=== PATIENT | female | born 1935 | race Caucasian/White ===

== ENCOUNTER 2016-07-11 04:02 | Emergency (ER) | payer OTHER ==
[~2016-07-11] VITALS: Ht 172.7 cm; Wt 90.9 kg
[~2016-07-11 04:02] MED LIST: AMLO2.5T PO; ASPI-556 PO; ATOR40TA71 PO; ERGO500013 PO; FENO135C PO; FLUT1DIS BU; INSULIN LANTUS SQ; LORA1TAB3 PO; LOSA100T8 PO; LOTE55OS OU; NEBI5 PO; PANT40TA25 PO; SERT100T12 PO; [UNRECOGNIZED DRUG - CODE] PO
[2016-07-11 04:17] LABS: GLUCOSE,POINT OF CARE 119 MG/DL (70-110)
[2016-07-11] MEDS ORDERED: ACETAMINOPHEN 325 MG TABLET PO ONE (06:15)
[2016-07-11] MEDS ORDERED: PERTUSS(ACELL),DIPH,TET VAC/PF 0.5 ML VIAL IM ONE (06:15)
[2016-07-11 06:42] VITALS: BP 137/97
== END 2016-07-11 07:12 | disposition home or self-care (01) ==
LOC: EMS 04:03
DX: S01.01XA Laceration without foreign body of scalp, initial encounter (principal); S40.022A Contusion of left upper arm, initial encounter; J45.909 Unspecified asthma, uncomplicated; E11.9 Type 2 diabetes mellitus without complications; E78.00 Pure hypercholesterolemia, unspecified; I10 Essential (primary) hypertension; Z79.82 Long term (current) use of aspirin; Z79.4 Long term (current) use of insulin; W19.XXXA Unspecified fall, initial encounter; Y93.9 Activity, unspecified; Y92.89 Other specified places as the place of occurrence of the external cause; Y99.8 Other external cause status
CPT/HCPCS: 12001; 70450; 82962; 90471; 90715; 99284

== ENCOUNTER 2017-07-10 23:29 | Emergency (ER) | payer OTHER ==
[~2017-07-10] VITALS: Ht 167.6 cm; Wt 68.2 kg
[~2017-07-10 23:29] MED LIST changes: +ATOR40TA28 PO; -ATOR40TA71 PO; -FENO135C PO; +HYDR25TA84 PO; +LORA10TA7 PO; -LOSA100T8 PO; -NEBI5 PO
[2017-07-10 23:43] LABS: GLUCOSE,POINT OF CARE 135 MG/DL (70-110)
[2017-07-10] MEDS ORDERED: FLUT16H NASAL (23:47)
[2017-07-10] MEDS ORDERED: FERR-89 PO (23:47)
[2017-07-10] MEDS ORDERED: ASPI-989 PO (23:47)
[2017-07-10] MEDS ORDERED: MEMA21CA PO (23:47)
[2017-07-10] MEDS ORDERED: ATOR40TA28 PO (23:47)
[2017-07-10] MEDS ORDERED: DOCU250C91 PO (23:47)
[2017-07-10] MEDS ORDERED: HYDR25TA84 PO (23:47)
[2017-07-10] MEDS ORDERED: INSU100C14 SQ (23:47)
[2017-07-10] MEDS ORDERED: INSLAN SQ (23:47)
[2017-07-11] MEDS ORDERED: HydrALAZINE HCL 20 MG/ML VIAL IVP ONE
[2017-07-11 00:32] LABS: BASOPHILS % (AUTO) 0.8 % (0.0-2.0); EOSINOPHILS % (AUTO) 4.1 % (1.0-6.0); HEMATOCRIT 29.7 % (36-46); HEMOGLOBIN 10.4 g/dL (12.0-16.0); LYMPHOCYTES # (AUTO) 1.2 K/uL (1.0-4.8); LYMPHOCYTES % (AUTO) 31.5 % (22.0-44.0); MEAN CORPUSCULAR HEMOGLOBIN 32.4 pg (26.0-34.0); MEAN CORPUSCULAR HGB CONC 35.2 G/dL (31.0-37.0); MEAN CORPUSCULAR VOLUME 92 fL (80-100); MONOCYTES # (AUTO) 0.4 K/uL (0.1-1.0); MONOCYTES % (AUTO) 9.9 % (2.0-9.0); NEUTROPHILS # (AUTO) 2.1 K/uL (1.8-7.7); NEUTROPHILS % (AUTO) 53.7 % (40.0-70.0); PLATELET COUNT (AUTO) 144 K/uL (150-450); RED BLOOD CELL COUNT(AUTO) 3.22 MIL/uL (4.00-5.20); RED CELL DISTRIBUTION WIDTH 13.1 % (11.5-14.5)
[2017-07-11 00:45] LABS: ANION GAP 8 mmol/L (8-16); CALCIUM, TOTAL 9.4 mg/dL (8.8-10.5); CARBON DIOXIDE 26 mmol/L (22-29); CHLORIDE 103 mmol/L (98-107); CREATININE 1.33 mg/dL (0.60-1.30); GLOMERULAR FILTR. RATE CALC 38 mL/min (>60); GLUCOSE,RANDOM 124 mg/dL (70-110); POTASSIUM 4.1 mmol/L (3.5-5.1); SODIUM SERUM 137 mmol/L (136-145); UREA NITROGEN, BLOOD 24 mg/dL (7-18)
[2017-07-11 00:48] LABS: PROTHROMBIN TIME 10.6 SEC (9.4-11.6)
[2017-07-11 01:08] LABS: ALANINE AMINOTRANSFERASE 26 U/L (12-78); ALBUMIN 3.7 g/dL (3.4-5.0); ALKALINE PHOSPHATASE 40 U/L (46-116); ASPARTATE AMINOTRANSFERASE 23 U/L (15-37); BILIRUBIN,TOTAL 0.5 mg/dL (0.1-1.0); CREATINE KINASE, TOTAL 83 U/L (26-192); TOTAL PROTEIN, SERUM 6.4 g/dL (6.4-8.2)
[2017-07-11] MEDS ORDERED: KETOROLAC TROMETHAMINE 30 MG/ML VIAL IVP ONE (02:45)
[2017-07-11 03:35] LABS: APPEARANCE,URINE CLEAR (CLEAR); BILIRUBIN,URINE NEGATIVE (NEGATIVE); GLUCOSE, URINE (UA) NEGATIVE (NEGATIVE); KETONES,URINE NEGATIVE (NEGATIVE); LEUKOCYTE ESTERASE ,URINE NEGATIVE (NEGATIVE); NITRATE,URINE NEGATIVE (NEGATIVE); OCCULT BLOOD,URINE NEGATIVE (NEGATIVE); PROTEIN,URINE NEGATIVE (NEGATIVE); UROBILINOGEN,URINE 0.2 mg/dL (<=1.0)
[2017-07-11 03:45] VITALS: BP 168/69
== END 2017-07-11 04:26 | disposition home or self-care (01) ==
LOC: EMS 23:30
DX: I10 Essential (primary) hypertension (principal); D64.9 Anemia, unspecified; J45.909 Unspecified asthma, uncomplicated; R51 Headache; E78.00 Pure hypercholesterolemia, unspecified; E11.9 Type 2 diabetes mellitus without complications; Z86.73 Personal history of transient ischemic attack (TIA), and cerebral infarction without residual deficits; Z79.82 Long term (current) use of aspirin; Z79.4 Long term (current) use of insulin; Z79.899 Other long term (current) drug therapy
CPT/HCPCS: 36415; 70450; 71045; 80053; 81003; 82550; 82553; 82962; 84484; 85025; 85610; 93005; 96374; 96375; 99285; J0360; J1885

== ENCOUNTER 2019-11-15 14:06 | Emergency (ER) | payer OTHER ==
[~2019-11-15] VITALS: Ht 165.1 cm; Wt 81.8 kg
[~2019-11-15 14:06] MED LIST changes: -AMLO2.5T PO; -ASPI-556 PO; +ASPI-989 PO; +DOCU-342 PO; +FERR-89 PO; +FLUT16H NASAL; -FLUT1DIS BU; +INSLAN SQ; +INSU100C14 SQ; -INSULIN LANTUS SQ; +LORA-1000 PO; -LORA1TAB3 PO; -LOTE55OS OU; +MEMA21CA PO; -[UNRECOGNIZED DRUG - CODE] PO
[2019-11-15 16:20] LABS: BASOPHILS % (AUTO) 0.3 % (0.0-2.0); EOSINOPHILS % (AUTO) 1.4 % (1.0-6.0); HEMATOCRIT 34.3 % (36-46); HEMOGLOBIN 11.5 g/dL (12.0-16.0); LYMPHOCYTES # (AUTO) 1.2 K/uL (1.0-4.8); LYMPHOCYTES % (AUTO) 15.9 % (22.0-44.0); MEAN CORPUSCULAR HEMOGLOBIN 30.9 pg (26.0-34.0); MEAN CORPUSCULAR HGB CONC 33.4 G/dL (31.0-37.0); MEAN CORPUSCULAR VOLUME 92 fL (80-100); MONOCYTES # (AUTO) 0.6 K/uL (0.1-1.0); MONOCYTES % (AUTO) 7.9 % (2.0-9.0); NEUTROPHILS # (AUTO) 5.5 K/uL (1.8-7.7); NEUTROPHILS % (AUTO) 74.5 % (40.0-70.0); PLATELET COUNT (AUTO) 206 K/uL (150-450); RED BLOOD CELL COUNT(AUTO) 3.71 MIL/uL (4.00-5.20); RED CELL DISTRIBUTION WIDTH 13.6 % (11.5-14.5)
[2019-11-15 16:31] LABS: CALCIUM, TOTAL 9.3 mg/dL (8.8-10.5); CREATININE 1.73 mg/dL (0.60-1.30); POTASSIUM 4.7 mmol/L (3.5-5.1)
[2019-11-15 16:37] LABS: ALBUMIN 3.7 g/dL (3.4-5.0); BILIRUBIN,TOTAL 0.4 mg/dL (0.1-1.0); TOTAL PROTEIN, SERUM 7.2 g/dL (6.4-8.2)
[2019-11-15 17:45] VITALS: BP 137/72
== END 2019-11-15 18:18 | disposition home or self-care (01) ==
LOC: EDUNIT# 14:06 → EMS 14:11
DX: I44.0 Atrioventricular block, first degree (principal); J45.909 Unspecified asthma, uncomplicated; I12.9 Hypertensive chronic kidney disease with stage 1 through stage 4 chronic kidney disease, or unspecified chronic kidney disease; E11.22 Type 2 diabetes mellitus with diabetic chronic kidney disease; N18.9 Chronic kidney disease, unspecified; Z86.73 Personal history of transient ischemic attack (TIA), and cerebral infarction without residual deficits; Z79.4 Long term (current) use of insulin; Z79.82 Long term (current) use of aspirin
CPT/HCPCS: 93005; 71045-TC